=== PATIENT | female | born 1965 | race Caucasian/White ===

== ENCOUNTER 2016-09-23 09:41 | Emergency (ER) | payer BC ==
[2016-09-23] MEDS: NS 0.9% 1000 ML* 2,000 ML IV ONE (11:02)
[2016-09-23 11:39] VITALS: BP 155/76
[2016-09-23 12:13] LABS: Hematocrit 42 % (35-47); Hemoglobin 13.9 g/dl (12.0-16.0); Mean Corpuscular HGB Conc 33 g/dl (31-36); Mean Corpuscular Hemoglobin 29 pg (27-31); Mean Corpuscular Volume 87 fL (80-97); Mean Platelet Volume 8 um3 (7.4-10.4); Red Blood Count 4.78 10^6/ul (4.0-5.4); Red Cell Distribution Width 13 % (10.5-15)
[2016-09-23 12:24] LABS: Urine Bacteria Absent (Absent); Urine Bilirubin Negative (Negative); Urine Glucose Negative (Negative); Urine Nitrite Negative (Negative)
[2016-09-23 12:26] LABS: Albumin 4.1 g/dL (3.2-5.2); BUN/Creatinine Ratio 18.6 (8-20); C Reactive Protein 7.48 mg/L (< 5.00); Calcium 9.6 mg/dL (8.6-10.3); EGFR African American 89.1 (>60); EGFR Non-African American 69.3 (>60); Globulin 3.4 g/dL (2-4); Total Bilirubin 0.3 mg/dL (0.2-1.0); Total Protein 7.5 g/dL (6.4-8.9)
--- NOTE | 2016-09-23 15:00 | ED ---
Cedrick Galloway Billy, scribed for Heraclio Cerda MD on 09/23/16 at 1025 . GI/ HPI - HPI Summary HPI Summary: Patient is a 50 year-old female coming to [facility] for evaluation of foul-smelling , yellow, vaginal discharge since yesterday. Patient had a laproscopic hysterectomy and bladder suspension with Dr. Eaton on 09/12/16 without any complications. She also reports suprapubic pressure, dysuria and burning with urination, and increased urinary frequency and urgency. She has been taking 800mg ibuprofen for her symptoms. Denies any vaginal bleeding. Denies any other symptoms such as fevers, chest pain, shortness of breath, or N/V/D. - History of Current Complaint Chief Complaint: EDVaginalBleeding Time Seen by Provider: 09/23/16 10:24 Stated Complaint: HYSTERECTOMY ON SEPTEMBER 12 , POSSIBLE INFECTION Hx Obtained From: Patient Onset/Duration: Started Days Ago, Still Present Timing: Constant Severity: Moderate Current Severity: Moderate Pain Intensity: 1 Location of Pain: Suprapubic Pain Characteristics: Pressure Associated Signs and Symptoms: Positive: Dysuria. Negative: Nausea, Vomiting, Diarrhea, Fever, Chills, Chest Pain Additional Signs & Symptoms: Positive: Vaginal Discharge, Other: - increased urinary frequency and urgency. Negative: Vaginal Bleeding - Allergy/Home Medications Allergies/Adverse Reactions: Allergies Allergy/AdvReac Type Severity Reaction Status Date / Time Bee Venom Allergy Severe anaphylaxis Verified 09/23/16 09:51 Penicillins Allergy Mild Rash Verified 09/23/16 09:51 PMH/Surg Hx/FS Hx/Imm Hx Endocrine/Hematology History: Denies: Hx Diabetes Cardiovascular History: Denies: Hx Hypertension Infectious Disease History: No Infectious Disease History: Reports: Traveled Outside the [place] in Last 30 Days - [facility] - Family History Known Family History: Positive: Diabetes Family History: No FHx of breast cancer. - Social History Alcohol Use: None Hx Substance Use: No Substance Use Type: Reports: None Hx Tobacco Use: No Smoking Status (MU): Never Smoked Tobacco Review of Systems Negative: Fever, Chills Negative: Nasal Discharge Negative: Chest Pain Negative: Shortness Of Breath Positive: Abdominal Pain - suprapubic pressure. Negative: Vomiting, Diarrhea, Nausea Positive: dysuria, discharge, frequency, urgency All Other Systems Reviewed And Are Negative: Yes Physical Exam - Summary Physical Exam Summary: The patient is well-nourished in no acute distress and in no acute pain. The skin is warm and dry and skin color reflects adequate perfusion. HEENT: The head is normocephalic and atraumatic. The pupils are equal and reactive. The conjunctivae are clear and without drainage. Nares are patent and without drainage. Mouth reveals moist mucous membranes and the throat is without erythema and exudate. The external ears are intact. The ear canals are patent and without drainage. The tympanic membranes are intact. Neck is supple with full range of motion and non-tender. There are no carotid bruits. There is no neck vein distension. Respiratory: Chest is non-tender. Lungs are clear to auscultation and breath sounds are symmetrical and equal. Cardiovascular: Heart is regular rate and rhythm. There is no murmur or rub auscultated. Abdomen: The abdomen is obese, soft and non-tender. Laproscopic incision holes have healed well. There are normal bowel sounds heard in all four quadrants and there is no organomegaly palpated. Musculoskeletal: There is no back pain noted. Extremities are non-tender with full range of motion. There is good capillary refill. Neurological: Patient is alert and oriented to person, place and time. The patient has symmetrical motor strength in all four extremities. Psychiatric: The patient has an appropriate affect and does not exhibit any anxiety or depression. Triage Information Reviewed: Yes Vital Signs On Initial Exam: Initial Vitals Temp Pulse Resp BP Pulse Ox 97.8 F 83 16 165/93 97 09/23/16 09:51 09/23/16 09:51 09/23/16 09:51 09/23/16 09:51 09/23/16 09:51 Vital Signs Reviewed: Yes Diagnostics - Vital Signs Vital Signs Temp Pulse Resp BP Pulse Ox 09/23/16 09:51 97.8 F 83 16 165/93 97 - Laboratory Lab Results: Lab Results 09/23/16 09/23/16 09/23/16 Range/Units 10:55 10:55 10:55 WBC 12.0 H (3.5-10.8) 10^3/ul RBC 4.78 (4.0-5.4) 10^6/ul Hgb 13.9 (12.0-16.0) g/dl Hct 42 (35-47) % MCV 87 (80-97) fL MCH 29 (27-31) pg MCHC 33 (31-36) g/dl RDW 13 (10.5-15) % Plt Count 317 (150-450) 10^3/ul MPV 8 (7.4-10.4) um3 Neut % (Auto) 66.5 (38-83) % Lymph % (Auto) 27.1 (25-47) % [place] % (Auto) 4.1 (1-9) % Eos % (Auto) 1.8 (0-6) % Baso % (Auto) 0.5 (0-2) % Absolute Neuts (auto) 8.0 H (1.5-7.7) 10^3/ul Absolute Lymphs (auto) 3.2 (1.0-4.8) 10^3/ul Absolute Monos (auto) 0.5 (0-0.8) 10^3/ul Absolute Eos (auto) 0.2 (0-0.6) 10^3/ul Absolute Basos (auto) 0.1 (0-0.2) 10^3/ul Absolute Nucleated RBC 0 10^3/ul Nucleated RBC % 0 INR (Anticoag Therapy) 1.03 (0.89-1.11) APTT 31.9 (26.0-36.3) seconds Sodium (133-145) mmol/L Potassium (3.5-5.0) mmol/L Chloride (101-111) mmol/L Carbon Dioxide (22-32) mmol/L Anion Gap (2-11) mmol/L BUN (6-24) mg/dL Creatinine (0.51-0.95) mg/dL Est GFR ( Amer) (>60) Est GFR (Non-Af Amer) (>60) BUN/Creatinine Ratio (8-20) Glucose (70-100) mg/dL Lactic Acid (0.5-2.0) mmol/L Calcium (8.6-10.3) mg/dL Total Bilirubin (0.2-1.0) mg/dL AST (13-39) U/L ALT (7-52) U/L Alkaline Phosphatase (34-104) U/L C-Reactive Protein (< 5.00) mg/L Total Protein (6.4-8.9) g/dL Albumin (3.2-5.2) g/dL Globulin (2-4) g/dL Albumin/Globulin Ratio (1-3) Urine Color Yellow Urine Appearance Cloudy Urine pH 6.0 (5-9) Ur Specific Sawyer 1.021 (1.010-1.030) Urine Protein Negative (Negative) Urine Ketones Negative (Negative) Urine Blood 1+ H (Negative) Urine Nitrate Negative (Negative) Urine Bilirubin Negative (Negative) Urine Urobilinogen Negative (Negative) Ur Leukocyte Esterase 3+ H (Negative) Urine WBC (Auto) 3+(>20/hpf) H (Absent) Urine RBC (Auto) 1+(3-5/hpf) H (Absent) Ur Squamous Epith Cells Present H (Absent) Urine Bacteria Absent (Absent) Urine Glucose Negative (Negative) 09/23/16 09/23/16 Range/Units 10:55 10:55 WBC (3.5-10.8) 10^3/ul RBC (4.0-5.4) 10^6/ul Hgb (12.0-16.0) g/dl Hct (35-47) % MCV (80-97) fL MCH (27-31) pg MCHC (31-36) g/dl RDW (10.5-15) % Plt Count (150-450) 10^3/ul MPV (7.4-10.4) um3 Neut % (Auto) (38-83) % Lymph % (Auto) (25-47) % [place] % (Auto) (1-9) % Eos % (Auto) (0-6) % Baso % (Auto) (0-2) % Absolute Neuts (auto) (1.5-7.7) 10^3/ul Absolute Lymphs (auto) (1.0-4.8) 10^3/ul Absolute Monos (auto) (0-0.8) 10^3/ul Absolute Eos (auto) (0-0.6) 10^3/ul Absolute Basos (auto) (0-0.2) 10^3/ul Absolute Nucleated RBC 10^3/ul Nucleated RBC % INR (Anticoag Therapy) (0.89-1.11) APTT (26.0-36.3) seconds Sodium 137 (133-145) mmol/L Potassium 4.0 (3.5-5.0) mmol/L Chloride 103 (101-111) mmol/L Carbon Dioxide 25 (22-32) mmol/L Anion Gap 9 (2-11) mmol/L BUN 16 (6-24) mg/dL Creatinine 0.86 (0.51-0.95) mg/dL Est GFR ( Amer) 89.1 (>60) Est GFR (Non-Af Amer) 69.3 (>60) BUN/Creatinine Ratio 18.6 (8-20) Glucose 95 (70-100) mg/dL Lactic Acid 1.0 (0.5-2.0) mmol/L Calcium 9.6 (8.6-10.3) mg/dL Total Bilirubin 0.30 (0.2-1.0) mg/dL AST 23 (13-39) U/L ALT 38 (7-52) U/L Alkaline Phosphatase 71 (34-104) U/L C-Reactive Protein 7.48 H (< 5.00) mg/L Total Protein 7.5 (6.4-8.9) g/dL Albumin 4.1 (3.2-5.2) g/dL Globulin 3.4 (2-4) g/dL Albumin/Globulin Ratio 1.2 (1-3) Urine Color Urine Appearance Urine pH (5-9) Ur Specific Sawyer (1.010-1.030) Urine Protein (Negative) Urine Ketones (Negative) Urine Blood (Negative) Urine Nitrate (Negative) Urine Bilirubin (Negative) Urine Urobilinogen (Negative) Ur Leukocyte Esterase (Negative) Urine WBC (Auto) (Absent) Urine RBC (Auto) (Absent) Ur Squamous Epith Cells (Absent) Urine Bacteria (Absent) Urine Glucose (Negative) Result Diagrams: 09/23/16 10:55 09/23/16 10:55 Lab Statement: Any lab studies that have been ordered have been reviewed, and results considered in the medical decision making process. Re-Evaluation - Re-Evaluation First Eval Re-Evaluation Time: 11:04 Change: Unchanged Comment: Patient requested to have a female provider perform the pelvic exam. Second Eval Re-Evaluation Time: 12:38 Comment: Labs reviewed. Will call [facility]CRE[facility] THER[facility] TECHNICIAN to discuss which antibiotics to discharge the patient with. Third Eval Re-Evaluation Time: 13:52 GIGU Course/Dx - Course Assessment/Plan: 50 year-old female coming to [facility] for evaluation of foul- smelling vaginal discharge s/p hysterectomy and bladder suspension 11 days ago. Patient requested female to do pelvic exam. Vanessa BLANCO attempted to perform speculum exam, however it was too painful for the patient. She did notice a yellow-white discharge from the vaginal wall, but she was unable to do a speculum exam and unable to obtain cultures. Patient declined to do vaginal cultures at this time. Patient care was discussed with Dr. Eaton. She will be discharged home with Anderbid and will follow up with Dr. Eaton as scheduled. - Diagnoses Differential Diagnoses - Female: Urinary Tract Infection, Other - wound infection, vaginal infection Provider Diagnoses: UTI (urinary tract infection), S/P vaginal hysterectomy - Physician Notifications Discussed Care Of Patient With: Lucila Villagran NP ([facility] RECREATIONAL THERAPY TECHNICIAN) @ 1100: agrees with plan to proceed with gentle speculum exam; she has concerns for yeast infection and bacterial vaginosis. Dr. Eaton (RECREATIONAL THERAPY TECHNICIAN) @ 1346: treat pt for UTI. Discharge - Discharge Plan Condition: Stable Disposition: HOME Prescriptions: Nitrofurantoin Monohyd Macro [Macrobid] 100 mg PO BID #20 cap Patient Education Materials: Urinary Tract Infection in Women (ED), Hysterectomy (GEN) Referrals: Tyler Álvarez MD [Primary Care Provider] - The documentation as recorded by the Cedrick renner Billy accurately reflects the service I personally performed and the decisions made by me, Heraclio Cerda MD.
== END 2016-09-23 14:18 | disposition home or self-care (01) ==
LOC: ED 09:41
DX: N39.0 Urinary tract infection, site not specified (principal); Z98.890 Other specified postprocedural states; Z88.0 Allergy status to penicillin
CPT/HCPCS: 36415; 80053; 81003; 81015; 83605; 85025; 85610; 85730; 86140; 87040; 87077; 87086; 87186; 96360; 99283

== ENCOUNTER 2017-07-11 09:54 | Emergency (ER) | payer SELFPAY ==
[2017-07-11] MEDS ORDERED: NS 0.9% 1000 ML* 1,000 ML IV ONE (13:09)
[2017-07-11] MEDS ORDERED: Acetaminophen TAB* 325 MG PO ONE (13:11)
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
[2017-07-11 13:33] LABS: ABS Basophils 0.1 10^3/ul (0-0.2); ABS Eosinophils 0.1 10^3/ul (0-0.6); ABS Monocytes 0.3 10^3/ul (0-0.8); ABS Neutrophils 6.4 10^3/ul (1.5-7.7); ABS Nucleated RBC 0 10^3/ul; Eosinophil % 1.3 % (0-6); Hematocrit 43 % (35-47); Hemoglobin 14.4 g/dl (12.0-16.0); Lymphocyte % 30.7 % (25-47); Mean Corpuscular HGB Conc 34 g/dl (31-36); Mean Corpuscular Hemoglobin 30 pg (27-31); Mean Corpuscular Volume 90 fL (80-97); Mean Platelet Volume 8 um3 (7.4-10.4); Nucleated Red Blood Cells % 0; Platelet Count 275 10^3/ul (150-450); Red Blood Count 4.75 10^6/ul (4.0-5.4); Red Cell Distribution Width 14 % (10.5-15); White Blood Count 9.9 10^3/ul (3.5-10.8)
[2017-07-11 13:44] LABS: EGFR Non-African American 98.8 (>60)
[2017-07-11] MEDS ORDERED: Tetan/Diph/Pertus SYR(Tdap)* 0.5 ML SYR(BOOSTRIX) use SYR IM ONE (13:51)
[2017-07-11] MEDS ORDERED: Iohexol 300* (CONTRAST) 10 ML SDV IV ONE (14:05)
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
[2017-07-11 15:37] VITALS: BP 160/81
== END 2017-07-11 15:35 | disposition home or self-care (01) ==
LOC: ED 09:54
DX: S20.211A Contusion of right front wall of thorax, initial encounter (principal); R07.9 Chest pain, unspecified; V49.9XXA Car occupant (driver) (passenger) injured in unspecified traffic accident, initial encounter; Y92.9 Unspecified place or not applicable
CPT/HCPCS: 36415; 70450; 71260; 72125; 74177; 80053; 83690; 85025; 90471; 90715; 99282; A9270-GY; Q9967